=== PATIENT | female | born 1995 | race Caucasian/White ===

== ENCOUNTER 2016-10-19 09:20 | Emergency (ER) | payer BC, OTHER ==
[~2016-10-19] VITALS: Ht 162.6 cm; Wt 81.1 kg
[2016-10-19 09:21] VITALS: Ht 162.6 cm; Wt 81.1 kg
--- NOTE | 2016-10-19 10:47 | RADRPT ---
PROCEDURE: US Pelvis. CLINICAL INDICATION: Vaginal bleeding. TECHNIQUE: Multiple sonographic images of the pelvis were obtained utilizing a transabdominal and endovaginal technique. The images were reviewed on a PACS workstation. COMPARISON: None available. FINDINGS: The uterus demonstrates an intrauterine gestational sac, yolk sac and a pole with cardiac acti vity at 158 beats per minute. The mean sac size is 4.58 cm consistent with 35-tged-1-day gestation. The mean crown-rump length is 3.36 cm in size with a 97-amkt-0-day gestation. There are no abnorma l fluid collections identified. Ovaries appear normal in size and echotexture bilaterally. The rig ht ovary measures 3.1 by 0.6 x 2.2 cm. Left ovary measures 3.3 x 1.5 x 2.2 cm. There are no adnexal masses or free fluid in the cul-de-sac. IMPRESSION: 1. Single living intrauterine gestation with a mean gestational age by ultrasound of 10 weeks 2 days plus or minus 5 days. Estimated date of delivery is 05/15/2017. RPTAT: AACC Physician Robin Date Time Electronically viewed and signed by Physician Robin on 10/19/2016 10:47 /
--- NOTE | 2016-10-19 10:53 | ERD ---
ER Documentation Chief Complaint Date/Time DATE: 10/19/16 TIME: 10:50 Chief Complaint 9 weeks with spotting HPI This 21-year-old female who presents the emergency department today complaining of some vaginal bleeding that started this morning. Patient states she had abdominal cramping last night she thought it was food that she ate. Patient is 9 weeks and had her last appointment last Tuesday and everything was normal. States she has a follow-up appointment at [facility] in [place] on October 30, 2016 per denies nausea vomiting, abdominal pain, dysuria. ROS All systems reviewed and are negative except as per history of present illness. Medications Home Meds Active Scripts Acetaminophen* (Tylophen*) 500 Mg Capsule, 1 CAP PO Q6H Y for PAIN AND OR ELEVATED TEMP, #20 CAP Prov:SAVAGE CLARK PA-C 10/19/16 Allergies Allergies: Coded Allergies: No Known Allergy (Verified , 10/19/16) PMhx/Soc Hx Miscellaneous Medical Probl: Yes (dm) Hx Alcohol Use: No Hx Substance Use: No Hx Tobacco Use: No Physical Exam Vitals Vital Signs Date Time Temp Pulse Resp B/P Pulse Ox O2 Delivery O2 Flow Rate FiO2 10/19/16 09:21 97.7 78 18 128/67 99 Physical Exam Const: NAD Head: Atraumatic Eyes: Normal Conjunctiva ENT: Normal External Ears, Nose and Mouth. Neck: Full range of motion..~ No meningismus. Resp: Clear to auscultation bilaterally Cardio: Regular rate and rhythm, no murmurs Abd: Soft, non tender, non distended. Normal bowel sounds no right lower quadrant pain. No left lower quadrant pain. Skin: No petechiae or rashes Back: No midline or flank tenderness Ext: No cyanosis, or edema Neur: Awake and alert Psych: Normal Mood and Affect Result Diagram: 10/19/16 1040 Results 24 hrs Laboratory Tests Test 10/19/16 10:40 10/19/16 10:50 White Blood Count 7.310^3/ul Red Blood Count 4.3210^6/ul Hemoglobin 12.7g/dl Hematocrit 37.3% Mean Corpuscular Volume 86.3fl Mean Corpuscular Hemoglobin 29.4pg Mean Corpuscular Hemoglobin Concent 34.0g/dl Red Cell Distribution Width 14.6% Platelet Count 38151^3/UL Mean Platelet Volume 10.5fl Neutrophils % 72.2% Lymphocytes % 20.4% Monocytes % 5.8% Eosinophils % 0.8% Basophils % 0.5% Nucleated Red Blood Cells % 0.0/100WBC Neutrophils # 5.310^3/ul Lymphocytes # 1.510^3/ul Monocytes # 0.410^3/ul Eosinophils # 0.110^3/ul Basophils # 0.010^3/ul Nucleated Red Blood Cells # 0.010^3/ul Beta HCG, Quantitative 137747.0mIU/ml Urine Color LT. YELLOW Urine Clarity SLIGHTLY CLOUDY Urine pH 7.0 Urine Specific [place] 1.010 Urine Ketones 3+ Urine Nitrite NEGATIVE Urine Bilirubin NEGATIVE Urine Urobilinogen 0.2 E.U./dL Urine Leukocyte Esterase NEGATIVE Urine Microscopic RBC 0-2/HPF Urine Microscopic WBC 0-2/HPF Urine Epithelial Cells FEW Urine Amorphous Phosphates MANY Urine Bacteria MODERATE Urine Hemoglobin 2+ Urine Glucose NEGATIVE% Urine Total Protein NEGATIVE DIAGNOSTIC IMAGING REPORT Patient: DANNI OBRIEN : 1995 Age: 21 Sex: F MR #: [id number] DOS: 10/19/16 1019 Ordering MD: SAVAGE CLARK PA-C Location: [facility] Room/Bed: PROCEDURE: US Pelvis. CLINICAL INDICATION: Vaginal bleeding. TECHNIQUE: Multiple sonographic images of the pelvis were obtained utilizing a transabdominal and endovaginal technique. The images were reviewed on a PACS workstation. COMPARISON: None available. FINDINGS: The uterus demonstrates an intrauterine gestational sac, yolk sac and a pole with cardiac activity at 158 beats per minute. The mean sac size is 4.58 cm consistent with 18-mrlz-5-day gestation. The mean crown-rump length is 3.36 cm in size with a 71-vtqh-4-day gestation. There are no abnormal fluid collections identified. Ovaries appear normal in size and echotexture bilaterally. The right ovary measures 3.1 by 0.6 x 2.2 cm. Left ovary measures 3.3 x 1.5 x 2.2 cm. There are no adnexal masses or free fluid in the cul-de-sac. IMPRESSION: 1. Single living intrauterine gestation with a mean gestational age by ultrasound of 10 weeks 2 days plus or minus 5 days. Estimated date of delivery is 05/15/2017. RPTAT: AACC Lawson Baig Physician Date Time Electronically viewed and signed by Lawson Baig Physician on 10/19/2016 10: 47 JH/ CC: SAVAGE CLARK PA-C Procedures/MDM This is a A1 21-year-old female who presents to the emergency department today complaining of vaginal bleeding that started this morning. Patient indicated she is approximately 9 weeks given this I did obtain a complete OB workup Laboratory work shows no elevated white blood cell count. She is not anemic. Platelets are within normal limits. UA is negative for infection. Beta quant hCG 792928.0 Rh status O + Positive Ultrasound shows a single live intrauterine gestation with mean gestational age by ultrasound of 10 weeks and 2 days 5 days. Estimated date of delivery is May 15, 2017. There are no adnexal masses or free fluid. Cardiac activity is 158 bpm. Patient has vaginal bleeding in early . Patient symptoms may be due to threatened vs. early normal . I have explained this to the patient. I have also explained to her that she may continue to have vaginal bleeding. Patient denies any nausea vomiting or abdominal pain. She was given a prescription for Tylenol for home. She was instructed to follow-up with her OB/ [employer] in 48 hours for repeat beta quant. At this time the patient is stable for discharge and outpatient management. Patient should follow up with their PCP in the next 1-2 days. They may return to the emergency department sooner for any persistent or worsening of symptoms. Patient understood and agreed with the plan. Departure Diagnosis: Primary Impression: Vaginal bleeding in patient at less than 20 weeks gestation Condition: Fair SAVAGE CLARK PA-C Oct 19, 2016 10:53
[2016-10-19 10:55] LABS: ADD SCAN DIFF NO
[2016-10-19 11:09] LABS: BASOPHILS % 0.5 % (0.0-2.0); EOSINOPHILS # 0.1 10^3/ul (0.0-0.5); EOSINOPHILS % 0.8 % (0.0-7.0); HEMATOCRIT 37.3 % (37.0-47.0); HEMOGLOBIN 12.7 g/dl (12.0-16.0); LYMPHOCYTES # 1.5 10^3/ul (0.8-2.9); LYMPHOCYTES % 20.4 % (15.0-51.0); MEAN CORPUSCULAR HEMOGLOBIN 29.4 pg (29.0-33.0); MEAN CORPUSCULAR VOLUME 86.3 fl (82.0-101.0); MEAN PLATELET VOLUME 10.5 fl (7.4-10.4); MONOCYTE # 0.4 10^3/ul (0.3-0.9); MONOCYTES % 5.8 % (0.0-11.0); NEUTROPHIL # 5.3 10^3/ul (1.6-7.5); NEUTROPHILS % 72.2 % (39.0-77.0); PLATELET COUNT 255 10^3/UL (140-415); RED BLOOD COUNT 4.32 10^6/ul (4.20-5.40); RED CELL DISTRIBUTION WIDTH 14.6 % (11.5-14.5); WHITE BLOOD COUNT 7.3 10^3/ul (4.8-10.8)
[2016-10-19 11:18] LABS: ADD UMIC YES; URINE BILIRUBIN (Dip) NEGATIVE (NEGATIVE); URINE BLOOD (Dip) 2+ (NEGATIVE); URINE COLOR LT. YELLOW (YELLOW); URINE GLUCOSE (Dip) NEGATIVE (NEGATIVE); URINE KETONES (Dip) 3+ (NEGATIVE); URINE LEUKOCYTE ESTERASE (Dip) NEGATIVE (NEGATIVE); URINE NITRITE (Dip) NEGATIVE (NEGATIVE); URINE TOTAL PROTEIN (Dip) NEGATIVE (NEGATIVE); URINE UROBILINOGEN (Dip) 0.2 E.U./dL (0.1-1.0)
[2016-10-19 11:42] LABS: BACTERIA,URINE MODERATE; URINE RBCS 0-2 /HPF (0)
[2016-10-19] MEDS ORDERED: ACET500C5 PO (12:27)
[2016-10-19 12:45] VITALS: BP 122/65; PULSE 74; RESP 18; TEMP 98
== END 2016-10-19 12:35 | disposition home or self-care (01) ==
LOC: FTE 09:20
DX: O20.9 Hemorrhage in early pregnancy, unspecified (principal); O24.111 Pre-existing type 2 diabetes mellitus, in pregnancy, first trimester; E11.9 Type 2 diabetes mellitus without complications; Z3A.10 10 weeks gestation of pregnancy
CPT/HCPCS: 36415; 76801; 81001; 81003; 84702; 85025; 86900; 86901

== ENCOUNTER 2017-02-12 20:57 | Outpatient (CLI) | payer MEDICAID ==
[~2017-02-12] VITALS: Ht 157.5 cm; Wt 97.4 kg
[~2017-02-12 20:57] MED LIST: ACET500C5 PO
[2017-02-12 21:05] VITALS: Ht 157.5 cm; Wt 97.4 kg
[2017-02-12 21:11] VITALS: BP 120/56; PULSE 74; RESP 18
[2017-02-12] MEDS ORDERED: PRENAT PO (21:13)
--- NOTE | 2017-02-12 21:38 | PN ---
Triage Information Date/Time Weeks of Gestation Patient is 1 para 0 at 26 weeks and 4 days of gestation : 1 Para: 0 Diabetes: none Hypertention: none Additional information Patient presents with decreased movement since yesterday Objective Vital Signs Date Time Temp Pulse Resp B/P Pulse Ox O2 Delivery O2 Flow Rate FiO2 02/12/17 21:11 98.2 74 18 120/56 Room Air Heart Rate: 140's Heart Rate Comments NST is reactive Contractions: None Results/Medications Imaging Results PROCEDURE: Obstetrical ultrasound, limited. CLINICAL INDICATION: Pelvic pain. TECHNIQUE: Multiple sonographic images of the pelvis were obtained using transabdominal technique. Images were obtained with knott scale and color Doppler. The images were reviewed on a PACS workstation. COMPARISON: 10/19/2016. FINDINGS: There is a single living intrauterine gestation with the fetus in a breech and variable presentation. heart tones of 139 beats per minute are identified. The placenta is posterior in location, grade 1. There is no evidence of placenta previa or abruption. Measurements were made in order to determine age. The results are as follows: BPD = 6.33 cm HC = 23.35 cm AC = 23.57 cm FL = 4.99 cm. Estimated gestational age of approximately 26 weeks and 3 days. The estimated date of delivery is 05/18/2017. The EFW = 1032 +/- 155 grams. Estimated weight percentage equals 62.4%. IMPRESSION: Single viable intrauterine gestation of approximately 26 weeks and 3 days, with an ultrasound RANDY of 05/18/2017. .Dannie Chavez MD, MD Date Time Electronically viewed and signed by .Dannie Chavez MD, MD on 02/12/2017 22:24 .T/ CC: NORBERT FARLEY MD PROCEDURE: Biophysical profile. CLINICAL INDICATION: Pelvic pain. TECHNIQUE: Multiple sonographic images of the pelvis were obtained with transabdominal technique. COMPARISON: 10/19/2016 FINDINGS: There is a single living intrauterine gestation with the fetus in a breech and variable position. The placenta is posterior in location, grade 1. heart tones of 152 beats per minute are identified. There is normal amniotic fluid volume with an LIBERTAD of 14.8 cm. breathing movements = 2 Gross body movements = 2 tone = 2 Qualitative AFV = 2 IMPRESSION: Biophysical profile 8 out of 8. .Dannie Chavez MD, Date Time Electronically viewed and signed by .Dannie Chavez MD, on 02/12/2017 22:24 .T/ CC: NORBERT FARLEY MD Assessment/Plan Patient is 1 para 0 at 26 weeks and 4 days of gestation with decreased movement NST and biophysical profile and estimated weight all within normal limits Patient now reports positive movement Patient was instructed regarding kick counts Patient was counseled to increase p.o. fluid hydration She should return in 48 hours for repeat NST and biophysical profile NORBERT FARLEY MD Feb 12, 2017 21:38
--- NOTE | 2017-02-12 22:24 | RADRPT ---
PROCEDURE: Obstetrical ultrasound, limited. CLINICAL INDICATION: Pelvic pain. TECHNIQUE: Multiple sonographic images of the pelvis were obtained using transabdominal technique . Images were obtained with knott scale and color Doppler. The images were reviewed on a PACS works tation. COMPARISON: 10/19/2016. FINDINGS: There is a single living intrauterine gestation with the fetus in a breech and variable presentation . heart tones of 139 beats per minute are identified. The placenta is posterior in location, grade 1. There is no evidence of placenta previa or abruption. Measurements were made in order to determine age. The results are as follows: BPD =6.33 cm HC =23.35 cm AC =23.57 cm FL =4.99 cm. Estimated gestational age of approximately 26 weeks and 3 days. The estimated date of delivery is 05/18/2017. The EFW = 1032 +/- 155 grams. Estimated weight percentage equals 62.4%. IMPRESSION: Single viable intrauterine gestation of approximately 26 weeks and 3 days, with an ultrasound RANDY of 05/18/2017. .Dannie Chavez MD, MD Date Time Electronically viewed and signed by .Dannie Chavez MD, MD on 02/12/2017 22:24 .T/
--- NOTE | 2017-02-12 22:25 | RADRPT ---
PROCEDURE: Biophysical profile. CLINICAL INDICATION: Pelvic pain. TECHNIQUE: Multiple sonographic images of the pelvis were obtained with transabdominal technique. COMPARISON: 10/19/2016 FINDINGS: There is a single living intrauterine gestation with the fetus in a breech and variable position. T he placenta is posterior in location, grade 1. heart tones of 152 beats per minute are identif ied. There is normal amniotic fluid volume with an LIBERTAD of 14.8 cm. breathing movements = 2 Gross body movements = 2 tone = 2 Qualitative AFV = 2 IMPRESSION: Biophysical profile 8 out of 8. .Dannie Chavez MD, MD Date Time Electronically viewed and signed by .Dannie Chavez MD, MD on 02/12/2017 22:24 .T/
--- NOTE | 2017-02-12 23:16 | TRIAGE ---
OB Triage Datetime Report Generated by CPN: 02/12/2017 23:16 Datetime: 02/12/2017 22:50 Stage of : OB Triage Labor Evaluation Frequency: 0 Monitor Mode: External Pattern: Normal: <= 5 Contractions in 10 Minutes Resting Tone Glandorf: Relaxed Heart Rate FHR Baseline Rate: 140 Monitor Mode: External US Variability: Moderate 6-25 bpm Accelerations: 15X15 Decelerations: None Category: Category I Pain Assessment Pain Presence: None/Denies Datetime: 02/12/2017 22:00 Stage of : OB Triage Temperature Route: Oral Labor Evaluation Frequency: 0 Monitor Mode: External Pattern: Normal: <= 5 Contractions in 10 Minutes Resting Tone Glandorf: Relaxed Heart Rate FHR Baseline Rate: 140 Monitor Mode: External US Variability: Moderate 6-25 bpm Accelerations: 15X15 Decelerations: None Category: Category I Pain Assessment Pain Presence: None/Denies Datetime: 02/12/2017 21:15 Assessment Type: Triage Maternal Assessment Level of Consciousness: Fully Conscious DTR's/Clonus: DTRs 2+; No Clonus Headache: Denies Blurred Vision: No Respiratory Effort: Unlabored; Regular Rhythm; Equal Expansion Breath Sounds, Left: Clear and Equal Breath Sounds, Right: Clear and Equal Nausea/Vomiting: Denies RUQ Epigastric Pain: Denies Lower Extremities Edema: None Upper Extremities Edema: None Facial Edema: None Fall Risk Assessment History of Falling: (0) No Secondary Diagnosis: (0) No Ambulatory Aid: (0) Bedrest/Nurse Assist IV Therapy: (0) No Gait: (0) Normal/Bedrest/Immobile Mental Status: (0) Oriented to Own Ability Fall Score: 0 Fall Risk Score Definition: No Risk: No action required Datetime: 02/12/2017 21:12 Time of Arrival: 02/12/2017 20:51 EGA: 26.4 Arrived By: Ambulatory Arrived From: Home Chief Complaint: DEC. MOVEMENT SINCE YESTERDAY Movement: Decreased Contractions: Denies/Absent Rupture of Membranes: Denies Vaginal Bleeding: None Vaginal Discharge: Denies Patient Complaints: None Additional Patient Complaints: HX OF DIABETES CHILD, WAS ON METFORMIN FOR A YEAR, STATED LOST W EIGHT AND WAS OFF THE MED SINCE THEN Time Provider Notified: 02/12/2017 21:20 Provider Notified: MARTINE Initial Plan: EFM, ASSESSMENT, CALL MD FOR ORDERS
== END 2017-02-12 22:57 | disposition home or self-care (01) ==
LOC: OBT 20:57 → L-D 20:59 → OBT 22:57
PROVIDERS: ATTEND Obstetrics & Gynecology
DX: O36.8120 Decreased fetal movements, second trimester, not applicable or unspecified (principal); Z3A.26 26 weeks gestation of pregnancy
CPT/HCPCS: 76815; 76818

== ENCOUNTER 2017-02-14 18:05 | Outpatient (CLI) | payer MEDICAID ==
[~2017-02-14] VITALS: Ht 157.5 cm; Wt 98.1 kg
[~2017-02-14 18:05] MED LIST changes: +PRENAT PO
--- NOTE | 2017-02-14 18:41 | QN ---
Documentation Comment g1 iup 26 weeks dfm v ss exam wnl a/p iup 26 weeks dfm resolved dc home LORI LIMA MD Feb 14, 2017 18:41
--- NOTE | 2017-02-14 18:47 | RADRPT ---
PROCEDURE: US OB biophysical profile. CLINICAL INDICATION: evaluation TECHNIQUE: Multiple sonographic images of the pelvis were obtained. The images were reviewed on a PACS workstation. COMPARISON: No prior studies are available for comparison. FINDINGS: There is a single viable intrauterine gestation. Cardiac activity is present with 161 beats per min tatyana. There is a vertex presentation. The placenta is posterior. There is no evidence of placental abruption. There is a normal amount of amniotic fluid with an LIBERTAD = 13.5 cm. Biophysical profile: movement 2/2 tone 2/2. breathing 2/2 LIBERTAD 2/2 Total 02/22 RPTAT: AA . IMPRESSION: Normal biophysical profile. Physician Molly Date Time Electronically viewed and signed by Physician Molly on 02/14/2017 18:46 /
[2017-02-14 18:52] VITALS: Ht 157.5 cm; Wt 98.1 kg
[2017-02-14 18:53] VITALS: BP 125/58; PULSE 78; RESP 18
--- NOTE | 2017-02-14 19:08 | TRIAGE ---
OB Triage Datetime Report Generated by CPN: 02/14/2017 19:07 Datetime: 02/14/2017 18:44 Labor Evaluation Frequency: NO UC'S NOTED Monitor Mode: External Contraction Comments: PT DENIES UC'S Heart Rate FHR Baseline Rate: 155 Monitor Mode: External US Variability: Moderate 6-25 bpm Accelerations: 15X15 Decelerations: None Category: Category I Comments: NST REACTIVE FOR GESTATIONAL AGE Datetime: 02/14/2017 18:34 Assessment Type: Triage Maternal Assessment Level of Consciousness: Fully Conscious DTR's/Clonus: DTRs 2+; No Clonus Headache: Denies Blurred Vision: No Respiratory Effort: Unlabored; Regular Rhythm; Equal Expansion Breath Sounds, Left: Clear and Equal Breath Sounds, Right: Clear and Equal Nausea/Vomiting: Denies RUQ Epigastric Pain: Denies Lower Extremities Edema: Bilateral Lower Extremities Degree: 2+ Upper Extremities Edema: Bilateral Upper Extremities Facial Edema: None Fall Risk Assessment History of Falling: (0) No Secondary Diagnosis: (0) No Ambulatory Aid: (0) Bedrest/Nurse Assist IV Therapy: (0) No Gait: (0) Normal/Bedrest/Immobile Mental Status: (0) Oriented to Own Ability Fall Score: 0 Fall Risk Score Definition: No Risk: No action required Datetime: 02/14/2017 18:32 Stage of : OB Triage Assessment Type: Triage Maternal Assessment Level of Consciousness: Fully Conscious DTR's/Clonus: DTRs 2+; No Clonus Headache: Denies Blurred Vision: No Respiratory Effort: Unlabored; Regular Rhythm; Equal Expansion Breath Sounds, Left: Clear and Equal Breath Sounds, Right: Clear and Equal Nausea/Vomiting: Denies RUQ Epigastric Pain: Denies Lower Extremities Edema: Bilateral Lower Extremities Degree: 2+ Upper Extremities Edema: Bilateral Upper Extremities Degree: 1+ Facial Edema: None Temperature Route: Axillary Fall Risk Assessment History of Falling: (0) No Secondary Diagnosis: (0) No Ambulatory Aid: (0) Bedrest/Nurse Assist IV Therapy: (0) No Gait: (0) Normal/Bedrest/Immobile Mental Status: (0) Oriented to Own Ability Fall Score: 0 Fall Risk Score Definition: No Risk: No action required Datetime: 02/14/2017 18:13 Time of Arrival: 02/14/2017 18:04 EGA: 26.6 Arrived By: Ambulatory Arrived From: Home Chief Complaint: F/U FOR DECREASED FM D/C ON 02/12 BY LABORIST Movement: Present Contractions: Denies/Absent Rupture of Membranes: Denies Vaginal Bleeding: None Vaginal Discharge: Denies Recent Sexual Intercouse: Denies Abdominal Trauma: Not Applicable Time Provider Notified: 02/14/2017 18:17 Provider Notified: DR. HAMEED Initial Plan: NST AND CALL MD Datetime: 02/12/2017 21:15 Fall Score: 0 Fall Risk Score Definition: No Risk: No action required Datetime: 02/12/2017 21:12 EGA: 26.4
== END 2017-02-14 18:59 | disposition home or self-care (01) ==
LOC: OBT 18:05 → L-D 18:06 → OBT 18:59
PROVIDERS: ATTEND Obstetrics & Gynecology
DX: O36.8120 Decreased fetal movements, second trimester, not applicable or unspecified (principal); Z3A.26 26 weeks gestation of pregnancy
CPT/HCPCS: 76818; Z7500; G0463

== ENCOUNTER 2017-02-23 20:24 | Outpatient (CLI) | payer MEDICAID ==
[~2017-02-23 20:24] MED LIST changes: -ACET500C5 PO
--- NOTE | 2017-02-23 21:27 | RADRPT ---
PROCEDURE: US OB biophysical profile. CLINICAL INDICATION: Evaluate well-being, contractions TECHNIQUE: Multiple sonographic images of the pelvis were obtained. The images were reviewed on a PACS workstation. COMPARISON: 02/14/2017 FINDINGS: There is a single viable intrauterine gestation. There is a normal amount of amniotic fluid with an LIBERTAD = 14.9 cm. Cardiac activity is present with 156 beats per minute. There is a breech presentation. The placenta is posterior. Biophysical profile: movement 2/2 tone 2/2. breathing 2/2 LIBERTAD 2/2 Total 02/22 IMPRESSION: 1. Single viable intrauterine gestation is identified in breech presentation. 2. Posterior placenta without evidence of previa or abruption. The amniotic fluid index is normal measuring 14.9 cm. 3. The biophysical profile is 02/22 RPTAT:AAJJ . Physician Chidi Date Time Electronically viewed and signed by Physician Chidi on 02/23/2017 21:27 /
[2017-02-23 21:42] LABS: BASOPHILS % 0.3 % (0.0-2.0); EOSINOPHILS # 0.1 10^3/ul (0.0-0.5); EOSINOPHILS % 1.2 % (0.0-7.0); HEMATOCRIT 30.1 % (37.0-47.0); HEMOGLOBIN 10.4 g/dl (12.0-16.0); LYMPHOCYTES # 2.5 10^3/ul (0.8-2.9); LYMPHOCYTES % 26.7 % (15.0-51.0); MEAN CORPUSCULAR HEMOGLOBIN 30.4 pg (29.0-33.0); MEAN CORPUSCULAR HGB CONC 34.6 g/dl (32.0-37.0); MEAN PLATELET VOLUME 10.7 fl (7.4-10.4); MONOCYTE # 0.4 10^3/ul (0.3-0.9); MONOCYTES % 4.4 % (0.0-11.0); NEUTROPHIL # 6.2 10^3/ul (1.6-7.5); PLATELET COUNT 216 10^3/UL (140-415); RED BLOOD COUNT 3.42 10^6/ul (4.20-5.40); RED CELL DISTRIBUTION WIDTH 13.4 % (11.5-14.5); WHITE BLOOD COUNT 9.3 10^3/ul (4.8-10.8)
[2017-02-23 22:00] LABS: ALBUMIN 3.3 g/dl (3.3-4.9); ALBUMIN/GLOBULIN RATIO 1.1; BILIRUBIN,INDIRECT 0.2 mg/dl (0-1.1); BILIRUBIN,TOTAL 0.2 mg/dl (0.2-1.3); CALCIUM 8.8 mg/dl (8.4-10.2); CREATININE 0.54 mg/dl (0.44-1.00); POTASSIUM 3.8 mmol/L (3.5-5.1); TOTAL PROTEIN 6.3 g/dl (6.1-8.1)
--- NOTE | 2017-02-23 22:07 | RADRPT ---
PROCEDURE: Gallbladder ultrasound. CLINICAL INDICATION: 21 years of age, female, Abdominal pain. TECHNIQUE: Multiple real-time longitudinal and transverse images of the gallbladder and common diane e duct were acquired utilizing a curved array transducer. Images were reviewed on a high-resolution PACS workstation. COMPARISON: None. FINDINGS: Pancreas: Not well seen due to bowel gas. Liver appearance: Normal. Liver length: 15.5 cm. Bile Ducts: No intrahepatic or extrahepatic biliary ductal dilatation. CBD: 1.3 cm. Gallbladder: Normal. Gallbladder wall measures an 0.2 cm. Main portal vein demonstrates hepatopetal flow. Right kidney length: 11.6 cm. Right kidney appearance: Normal. Other: Negative for free fluid in the right upper quadrant. IMPRESSION: Negative right upper quadrant ultrasound. Negative for gallstones or evidence of acute cholecystiti s. RPTAT: HCTS Physician Champ Date Time Electronically viewed and signed by Physician Champ on 02/23/2017 22:07 /
--- NOTE | 2017-02-24 00:01 | TRIAGE ---
OB Triage Datetime Report Generated by CPN: 02/24/2017 00:01 Datetime: 02/23/2017 23:55 Stage of : OB Triage Datetime: 02/23/2017 22:36 Pain Assessment Pain Assessment Comments: PT. STATES HER PAIN HAS GONE AWAY SINCE SHE IS LAYING DOWN. PT. STATES S HE FEELS MORE PAIN WHEN SHE IS SITTING Datetime: 02/23/2017 22:30 Labor Evaluation Frequency: NONE Monitor Mode: External Duration (sec)2399: NONE Pattern: Normal: <= 5 Contractions in 10 Minutes Heart Rate FHR Baseline Rate: 150 Monitor Mode: External US FHR Baseline Changes: No Baseline Change Variability: Moderate 6-25 bpm Accelerations: 10X10 Decelerations: None Datetime: 02/23/2017 20:48 Time of Arrival: 02/23/2017 20:19 EGA: 28.1 Arrived By: Wheelchair Arrived From: Home Chief Complaint: RUQ PAIN Movement: Present Contractions: Denies/Absent Rupture of Membranes: Denies Vaginal Bleeding: None Vaginal Discharge: Denies Recent Sexual Intercouse: Denies Abdominal Trauma: Not Applicable Patient Complaints: Other Time Provider Notified: 02/24/2017 20:53 Provider Notified: ESHAGIAN Initial Plan: EFM, CALL OB Datetime: 02/23/2017 20:30 Stage of : OB Triage Assessment Type: Triage Maternal Assessment Level of Consciousness: Fully Conscious Headache: Denies Blurred Vision: No Respiratory Effort: Unlabored; Regular Rhythm; Equal Expansion Nausea/Vomiting: Denies Facial Edema: None Temperature Route: Oral Fall Risk Assessment History of Falling: (0) No Secondary Diagnosis: (0) No Ambulatory Aid: (0) Bedrest/Nurse Assist IV Therapy: (0) No Gait: (0) Normal/Bedrest/Immobile Mental Status: (0) Oriented to Own Ability Fall Score: 0 Fall Risk Score Definition: No Risk: No action required Datetime: 02/14/2017 18:34 Fall Score: 0 Fall Risk Score Definition: No Risk: No action required Datetime: 02/14/2017 18:32 Fall Score: 0 Fall Risk Score Definition: No Risk: No action required Datetime: 02/14/2017 18:13 EGA: 26.6 Datetime: 02/12/2017 21:15 Fall Score: 0 Fall Risk Score Definition: No Risk: No action required Datetime: 02/12/2017 21:12 EGA: 26.4
--- NOTE | 2017-02-24 01:13 | PN ---
Triage Information Date/Time February 24, 2017 Reason for visit: Right upper quadrant pain and discomfort Weeks of Gestation 28 weeks and 1 day /Para 1 para 0 Diabetes: none Hypertention: none Additional information 21-year-old with IUP at 28 weeks and 1 day with care with Dr. Bolaños, presented with a complaint of right upper quadrant discomfort that increase when moves or turns and walks. Patient is concerned she might have gallstones. Denies any known history of gallstone. Denies any leaking of fluid , vaginal bleeding, uterine contractions or decreased movement. Objective Heart Rate: 120's Contractions: None Exam General appearance: Alert and oriented 4. Patient does not appear to be in any acute distress. Abdomen: Soft, gravid, nontender, no rebound tenderness, no guarding, no rigidity, no evidence of acute abdomen. Negative Sullivan sign. No CVA tenderness Extremities: No calf tenderness, no click no edema NST: Category 1 Ultrasound abdomen: No pathology Hematology - 72 Hrs Test 02/23/17 21:25 White Blood Count 9.310^3/ul (4.8-10.8) # Red Blood Count 3.4210^6/ul (4.20-5.40) #L Hemoglobin 10.4g/dl (12.0-16.0) L Hematocrit 30.1% (37.0-47.0) L Mean Corpuscular Volume 88.0fl (82.0-101.0) Mean Corpuscular Hemoglobin 30.4pg (29.0-33.0) Mean Corpuscular Hemoglobin Concent 34.6g/dl (32.0-37.0) Red Cell Distribution Width 13.4% (11.5-14.5) Platelet Count 21905^3/UL (140-415) Mean Platelet Volume 10.7fl (7.4-10.4) H Neutrophils % 67.0% (39.0-77.0) Lymphocytes % 26.7% (15.0-51.0) Monocytes % 4.4% (0.0-11.0) Eosinophils % 1.2% (0.0-7.0) Basophils % 0.3% (0.0-2.0) Nucleated Red Blood Cells % 0.0/100WBC (0.0-0.0) Neutrophils # 6.210^3/ul (1.6-7.5) Lymphocytes # 2.510^3/ul (0.8-2.9) Monocytes # 0.410^3/ul (0.3-0.9) Eosinophils # 0.110^3/ul (0.0-0.5) Basophils # 0.010^3/ul (0.0-0.1) Nucleated Red Blood Cells # 0.010^3/ul (0.0-0.0) Chemistry Test 02/23/17 21:25 Sodium Level 137mmol/L (135-144) Potassium Level 3.8mmol/L (3.5-5.1) Chloride Level 104mmol/L (97-110) Carbon Dioxide Level 20mmol/L (21-31) L Anion Gap 17 (8-16) H Blood Urea Nitrogen 5mg/dl (7-20) L Creatinine 0.54mg/dl (0.44-1.00) Glucose Level 166mg/dl (70-220) Calcium Level 8.8mg/dl (8.4-10.2) Total Bilirubin 0.2mg/dl (0.2-1.3) Direct Bilirubin 0.00mg/dl (0.00-0.20) Indirect Bilirubin 0.2mg/dl (0-1.1) Aspartate Amino Transf (AST/SGOT) 19IU/L (15-46) Alanine Aminotransferase (ALT/SGPT) 31IU/L (13-69) Alkaline Phosphatase 76IU/L (42-121) Total Protein 6.3g/dl (6.1-8.1) Albumin 3.3g/dl (3.3-4.9) Globulin 3.00g/dl (1.3-3.2) Albumin/Globulin Ratio 1.10 Amylase Level 80U/L (11-123) Lipase 36U/L (23-300) Results/Medications Result Diagram: 02/23/17212402/23/172124 Results 24 hrs Laboratory Tests Test 02/23/17 21:25 White Blood Count 9.3 # Red Blood Count 3.42 #L Hemoglobin 10.4 L Hematocrit 30.1 L Mean Corpuscular Volume 88.0 Mean Corpuscular Hemoglobin 30.4 Mean Corpuscular Hemoglobin Concent 34.6 Red Cell Distribution Width 13.4 Platelet Count 216 Mean Platelet Volume 10.7 H Neutrophils % 67.0 Lymphocytes % 26.7 Monocytes % 4.4 Eosinophils % 1.2 Basophils % 0.3 Nucleated Red Blood Cells % 0.0 Neutrophils # 6.2 Lymphocytes # 2.5 Monocytes # 0.4 Eosinophils # 0.1 Basophils # 0.0 Nucleated Red Blood Cells # 0.0 Sodium Level 137 Potassium Level 3.8 Chloride Level 104 Carbon Dioxide Level 20 L Anion Gap 17 H Blood Urea Nitrogen 5 L Creatinine 0.54 Glucose Level 166 Calcium Level 8.8 Total Bilirubin 0.2 Direct Bilirubin 0.00 Indirect Bilirubin 0.2 Aspartate Amino Transf (AST/SGOT) 19 Alanine Aminotransferase (ALT/SGPT) 31 Alkaline Phosphatase 76 Total Protein 6.3 Albumin 3.3 Globulin 3.00 Albumin/Globulin Ratio 1.10 Amylase Level 80 Lipase 36 Imaging Results PROCEDURE: Gallbladder ultrasound. CLINICAL INDICATION: 21 years of age, female, Abdominal pain. TECHNIQUE: Multiple real-time longitudinal and transverse images of the gallbladder and common bile duct were acquired utilizing a curved array transducer. Images were reviewed on a high-resolution PACS workstation. COMPARISON: None. FINDINGS: Pancreas: Not well seen due to bowel gas. Liver appearance: Normal. Liver length: 15.5 cm. Bile Ducts: No intrahepatic or extrahepatic biliary ductal dilatation. CBD: 1.3 cm. Gallbladder: Normal. Gallbladder wall measures an 0.2 cm. Main portal vein demonstrates hepatopetal flow. Right kidney length: 11.6 cm. Right kidney appearance: Normal. Other: Negative for free fluid in the right upper quadrant. IMPRESSION: Negative right upper quadrant ultrasound. Negative for gallstones or evidence of acute cholecystitis. PROCEDURE: US OB biophysical profile. CLINICAL INDICATION: Evaluate well-being, contractions TECHNIQUE: Multiple sonographic images of the pelvis were obtained. The images were reviewed on a PACS workstation. COMPARISON: 02/14/2017 FINDINGS: There is a single viable intrauterine gestation. There is a normal amount of amniotic fluid with an LIBERTAD = 14.9 cm. Cardiac activity is present with 156 beats per minute. There is a breech presentation. The placenta is posterior. Biophysical profile: movement 2/2 tone 2/2. breathing 2/2 LIBERTAD 2/2 Total 8 IMPRESSION: 1. Single viable intrauterine gestation is identified in breech presentation. 2. Posterior placenta without evidence of previa or abruption. The amniotic fluid index is normal measuring 14.9 cm. 3. The biophysical profile is 02/22 Disposition: Discharge Assessment/Plan IUP at 28 weeks and 1 day Right upper quadrant discomfort, musculoskeletal. No evidence of abdominal issue. No evidence of gallstones or cholecystitis Patient was reassured Advised to take Tylenol as needed pain Follow-up within 24-48 hours with primary OB suggested labor precaution and kick count discussed YVES FLORES MD Feb 24, 2017 01:12
== END 2017-02-24 00:04 | disposition home or self-care (01) ==
LOC: OBT 20:24 → L-D 20:25 → OBT 02-24 00:04
PROVIDERS: ATTEND Obstetrics & Gynecology
DX: O26.892 Other specified pregnancy related conditions, second trimester (principal); Z3A.01 Less than 8 weeks gestation of pregnancy; R10.11 Right upper quadrant pain
CPT/HCPCS: 76705; 76818; 80053; 82150; 83690; 85025; Z7500; G0463

== ENCOUNTER 2017-04-05 18:41 | Outpatient (CLI) | payer MEDICAID ==
[~2017-04-05] VITALS: Ht 157.5 cm; Wt 101.2 kg
[2017-04-05 19:23] VITALS: Ht 157.5 cm; Wt 101.2 kg
[2017-04-05] MEDS ORDERED: NPH,100V SQ (19:23)
[2017-04-05] MEDS ORDERED: INSU100C SQ ×2 (19:23)
[2017-04-05 19:24] VITALS: BP 116/62; PULSE 80; RESP 19
--- NOTE | 2017-04-05 20:32 | RADRPT ---
PROCEDURE: US biophysical profile. CLINICAL INDICATION: GDM. well-being. TECHNIQUE: Multiple sonographic images of the uterus were obtained. The images were revi ewed on a PACS workstation. COMPARISON: 02/23/2017. FINDINGS: There is a single live intrauterine gestation. heart rate is 152 beats per minute. The position is cephalic. The placenta is posterior, grade 2. The LIBERTAD is 15.2 cm. Breathing Movement: 2 Gross Body Movement: 2 Tone: 2 Qualitative Amniotic Fluid Volume: 2 TOTAL: 8 IMPRESSION: 1. Single viable intrauterine gestation. 2. Biophysical profile = 02/22. 3. LIBERTAD = 15.2 cm. RPTAT: HH .Sheron Deutsch MD, MD Date Time Electronically viewed and signed by .Sheron Deutsch MD, MD on 04/05/2017 20:31 .N/
--- NOTE | 2017-04-05 21:38 | TRIAGE ---
OB Triage Datetime Report Generated by CPN: 04/05/2017 21:37 Datetime: 04/05/2017 19:53 Labor Evaluation Frequency: NONE Monitor Mode: External Resting Tone [place]: Relaxed Heart Rate FHR Baseline Rate: 145 Monitor Mode: External US Variability: Moderate 6-25 bpm Accelerations: 15X15 Decelerations: None Category: Category I Datetime: 04/05/2017 19:25 Maternal Assessment Level of Consciousness: Fully Conscious DTR's/Clonus: DTRs 1+ Headache: Denies Blurred Vision: No Respiratory Effort: Unlabored Breath Sounds, Left: Clear and Equal Breath Sounds, Right: Clear and Equal RUQ Epigastric Pain: Denies Facial Edema: None Labor Evaluation Frequency: NONE Monitor Mode: External Resting Tone [place]: Relaxed Heart Rate FHR Baseline Rate: 145 Monitor Mode: External US Variability: Moderate 6-25 bpm Accelerations: 15X15 Decelerations: None Category: Category I Pain Assessment Pain Scale: 0 Pain Presence: None/Denies Pain Type: N/A Pain Goal: 3 Vaginal Exam Membrane Status: Intact Datetime: 04/05/2017 19:16 Assessment Type: Triage Maternal Assessment Level of Consciousness: Fully Conscious DTR's/Clonus: DTRs 2+; No Clonus Headache: Denies Blurred Vision: No Respiratory Effort: Unlabored; Regular Rhythm; Equal Expansion Breath Sounds, Left: Clear and Equal Breath Sounds, Right: Clear and Equal Nausea/Vomiting: Denies RUQ Epigastric Pain: Denies Lower Extremities Edema: None Degree: None Upper Extremities Edema: None Degree: None Facial Edema: None Fall Risk Assessment History of Falling: (0) No Secondary Diagnosis: (0) No Ambulatory Aid: (0) Bedrest/Nurse Assist IV Therapy: (0) No Gait: (0) Normal/Bedrest/Immobile Mental Status: (0) Oriented to Own Ability Fall Score: 0 Fall Risk Score Definition: No Risk: No action required Datetime: 04/05/2017 19:00 Time of Arrival: 04/05/2017 19:00 EGA: 34.0 Arrived By: Ambulatory Arrived From: Home Chief Complaint: PT CAME IN FOR NST AND BPP FOR GDM TYPE 2 . FBS 93 PP 116 Movement: Present Contractions: Denies/Absent Rupture of Membranes: Denies Vaginal Bleeding: None Vaginal Discharge: Denies Recent Sexual Intercouse: Denies Abdominal Trauma: Not Applicable Patient Complaints: None Additional Patient Complaints: NONE Time Provider Notified: 04/05/2017 21:00 Provider Notified: Dr. Bolaños Initial Plan: NST, BPP Datetime: 02/23/2017 20:48 EGA: 28.1 Datetime: 02/23/2017 20:30 Fall Score: 0 Fall Risk Score Definition: No Risk: No action required Datetime: 02/14/2017 18:34 Fall Score: 0 Fall Risk Score Definition: No Risk: No action required Datetime: 02/14/2017 18:32 Fall Score: 0 Fall Risk Score Definition: No Risk: No action required Datetime: 02/14/2017 18:13 EGA: 26.6 Datetime: 02/12/2017 21:15 Fall Score: 0 Fall Risk Score Definition: No Risk: No action required Datetime: 02/12/2017 21:12 EGA: 26.4
--- NOTE | 2017-04-05 22:25 | PN ---
Triage Information Date/Time Reason for visit: NST/LIBERTAD ([id number]) Weeks of Gestation 34+0 /Para 1/0 Diabetes: pre-gestational Diabetes management: insulin controlled Hypertention: none Additional information Reports normal FM, denies LOF, VB or UCs. Sent from Dr. Thomas's clinic for testing. Objective Vital Signs Date Time Temp Pulse Resp B/P Pulse Ox O2 Delivery O2 Flow Rate FiO2 04/05/17 19:24 98.2 80 19 116/62 99 Room Air Heart Rate: 140's Heart Rate Comments mod variability, +accels, no decels Contractions: None Results/Medications Imaging Results PROCEDURE: US biophysical profile. CLINICAL INDICATION: GDM. well-being. TECHNIQUE: Multiple sonographic images of the uterus were obtained. The images were reviewed on a PACS workstation. COMPARISON: 02/23/2017. FINDINGS: There is a single live intrauterine gestation. heart rate is 152 beats per minute. The position is cephalic. The placenta is posterior, grade 2. The LIBERTAD is 15.2 cm. Breathing Movement: 2 Gross Body Movement: 2 Tone: 2 Qualitative Amniotic Fluid Volume: 2 TOTAL: 8 IMPRESSION: 1. Single viable intrauterine gestation. 2. Biophysical profile = /8. 3. LIBERTAD = 15.2 cm. Disposition: Discharge Assessment/Plan Reactive NST, normal LIBERTAD. Results reviewed w/Dr. Thomas by digital court reporter and given d/c order. Pt appropriate for d/c home. PTL, PPROM and FKC precautions reviewed. Questions answered to patient's satisfaction prior to discharge. F/up as scheduled w/Dr. Thomas's office. Pt will call office tomorrow to schedule next NST/LIBETRAD ALEX CANTU MD Apr 05, 2017 22:25
== END 2017-04-05 21:15 | disposition home or self-care (01) ==
LOC: OBT 18:41 → L-D 18:42 → OBT 21:15
PROVIDERS: ATTEND Obstetrics & Gynecology
DX: O24.414 Gestational diabetes mellitus in pregnancy, insulin controlled (principal); Z3A.34 34 weeks gestation of pregnancy
CPT/HCPCS: 76818; G0463

== ENCOUNTER 2017-04-15 09:12 | Outpatient (CLI) | payer MEDICAID ==
[~2017-04-15] VITALS: Ht 157.5 cm; Wt 103.0 kg
[~2017-04-15 09:12] MED LIST changes: +INSU100C SQ; +NPH,100V SQ
[2017-04-15 09:21] VITALS: Ht 157.5 cm; Wt 103.0 kg
[2017-04-15 09:22] VITALS: BP 115/59; PULSE 88; RESP 18
--- NOTE | 2017-04-15 09:42 | RADRPT ---
PROCEDURE: OB ultrasound for biophysical profile CLINICAL INDICATION: Contractions. TECHNIQUE: Multiple sonographic images of the pelvis were obtained. Transabdominal view of the gr avid uterus are available for review. The images were reviewed on a PACS workstation. COMPARISON: 04/05/2017. FINDINGS: breathing movement = 2/2 tone = 2/2 motion = 2/2 Quantitative amniotic fluid volume = 2/2 LIBERTAD = 9.4 cm Single live intrauterine with cardiac activity at 144 beats per minute. There is a posterior placenta without previa or abruption. IMPRESSION: 1. Single living intrauterine gestation in cephalic position. 2. Biophysical profile = 8/8. 3. LIBERTAD = 9.4 cm. RPTAT: [facility] Physician Robin Date Time Electronically viewed and signed by Physician Robin on 04/15/2017 09:42 /
[2017-04-15] MEDS ORDERED: LACTATED RINGER'S 1,000 ML IV SCH (10:32)
[2017-04-15 12:07] LABS: BASOPHILS % 0.3 % (0.0-2.0); EOSINOPHILS # 0.1 10^3/ul (0.0-0.5); EOSINOPHILS % 1.3 % (0.0-7.0); HEMATOCRIT 31.8 % (37.0-47.0); HEMOGLOBIN 10.4 g/dl (12.0-16.0); LYMPHOCYTES # 2.2 10^3/ul (0.8-2.9); LYMPHOCYTES % 25.9 % (15.0-51.0); MEAN CORPUSCULAR HEMOGLOBIN 28.2 pg (29.0-33.0); MEAN CORPUSCULAR HGB CONC 32.7 g/dl (32.0-37.0); MEAN CORPUSCULAR VOLUME 86.2 fl (82.0-101.0); MEAN PLATELET VOLUME 11.8 fl (7.4-10.4); MONOCYTE # 0.5 10^3/ul (0.3-0.9); MONOCYTES % 5.3 % (0.0-11.0); NEUTROPHIL # 5.7 10^3/ul (1.6-7.5); NEUTROPHILS % 66.5 % (39.0-77.0); PLATELET COUNT 208 10^3/UL (140-415); RED BLOOD COUNT 3.69 10^6/ul (4.20-5.40); RED CELL DISTRIBUTION WIDTH 13.8 % (11.5-14.5); WHITE BLOOD COUNT 8.6 10^3/ul (4.8-10.8)
[2017-04-15 12:30] LABS: INR 1.05; PROTIME 13.7 Sec (12.2-14.2); PT RATIO 1.1
[2017-04-15 12:31] LABS: ALBUMIN 3.2 g/dl (3.3-4.9); ALBUMIN/GLOBULIN RATIO 1.06; BILIRUBIN,INDIRECT 0.3 mg/dl (0-1.1); BILIRUBIN,TOTAL 0.3 mg/dl (0.2-1.3); CALCIUM 8.7 mg/dl (8.4-10.2); CREATININE 0.5 mg/dl (0.44-1.00); PARTIAL THROMBOPLASTIN TIME 31.1 Sec (25.0-35.0); TOTAL PROTEIN 6.2 g/dl (6.1-8.1)
--- NOTE | 2017-04-15 13:43 | PN ---
Triage Information Date/Time Reason for visit: Weeks of Gestation 35w 3d /Para Diabetes: gestational Diabetes management: insulin controlled Objective Vital Signs Date Time Temp Pulse Resp B/P Pulse Ox O2 Delivery O2 Flow Rate FiO2 04/15/17 09:22 98.3 88 18 115/59 98 Room Air Heart Rate Comments FHT with wandering basline, +accels, 2 decels when patient on her back Contractions: None Results/Medications Result Diagram: 04/15/17 1100 04/15/17 1100 Results 24 hrs Laboratory Tests Test 04/15/17 11:00 White Blood Count 8.6 Red Blood Count 3.69 L Hemoglobin 10.4 L Hematocrit 31.8 L Mean Corpuscular Volume 86.2 Mean Corpuscular Hemoglobin 28.2 L Mean Corpuscular Hemoglobin Concent 32.7 Red Cell Distribution Width 13.8 Platelet Count 208 Mean Platelet Volume 11.8 H Neutrophils % 66.5 Lymphocytes % 25.9 Monocytes % 5.3 Eosinophils % 1.3 Basophils % 0.3 Nucleated Red Blood Cells % 0.0 Neutrophils # 5.7 Lymphocytes # 2.2 Monocytes # 0.5 Eosinophils # 0.1 Basophils # 0.0 Nucleated Red Blood Cells # 0.0 Prothrombin Time 13.7 Prothrombin Time Ratio 1.1 INR International Normalized Ratio 1.05 Activated Partial Thromboplast Time 31.1 Sodium Level 136 Potassium Level 4.0 Chloride Level 108 Carbon Dioxide Level 23 Anion Gap 9 Blood Urea Nitrogen 7 Creatinine 0.50 Glucose Level 109 Calcium Level 8.7 Total Bilirubin 0.3 Direct Bilirubin 0.00 Indirect Bilirubin 0.3 Aspartate Amino Transf (AST/SGOT) 19 Alanine Aminotransferase (ALT/SGPT) 33 Alkaline Phosphatase 111 Total Protein 6.2 Albumin 3.2 L Globulin 3.00 Albumin/Globulin Ratio 1.06 Amylase Level 63 Lipase 34 Medications Current Medications Lactated Ringer's (Lr) 1,000 ml @ 125 mls/hr Q8H IV Last administered on t 12:27; Admin Dose 125 MLS/HR; Start 04/15/17 at 10:32 Imaging Results BPP 8/, LIBERTAD 9.4cm Disposition: Discharge Assessment/Plan 21 y/o at 35w 3d with gdma2 on insulin and decels on FHT -BPP reassuring -discharge home -f/u for NST tomorrow, scheduled for NST in 3 days LOY CARDONA Apr 15, 2017 13:43
--- NOTE | 2017-04-15 13:50 | RADRPT ---
PROCEDURE: US OB. CLINICAL INDICATION: Size and dates , gestational diabetes TECHNIQUE: Multiple sonographic images of the pelvis and gravid uterus were obtained. The images were reviewed on a PACS workstation. COMPARISON: 04/05/2017 FINDINGS: There is a single viable intrauterine gestation. Cardiac activity is present with 166 beats per min tatyana. There is a vertex presentation. The placenta is posterior. There is no evidence for an abruption or placenta previa. Measurements were made in order to determine age. The results are as follows: BPD =8.2 cm HC =30.5 cm AC =31.9 cm FL =6.9 cm Estimated gestational age of approximately 34 weeks and 3 days based on ultrasound measurements. Clinical age: 35 weeks and 3 days. The estimated date of delivery is 05/24/17, based on ultrasound measurements. The EFW = 2608 g, 40.7%, based on LMP age. RPTAT: AA IMPRESSION: Single viable intrauterine gestation of approximately 34 weeks and 3 days based on ultrasound measu rements. .Paulo Srivastava MD, Date Time Electronically viewed and signed by .Paulo Srivastava MD, on 04/15/2017 13:50 .S/
--- NOTE | 2017-04-15 19:51 | TRIAGE ---
OB Triage Datetime Report Generated by CPN: 04/15/2017 19:51 Datetime: 04/15/2017 13:13 Labor Evaluation Frequency: OCCASIONAL Monitor Mode: External Duration (sec)2399: 50-70 Quality: Moderate Pattern: Normal: <= 5 Contractions in 10 Minutes Resting Tone [place]: Relaxed Heart Rate FHR Baseline Rate: 125 Monitor Mode: External US Variability: Moderate 6-25 bpm Accelerations: 15X15 Decelerations: None Category: Category I Datetime: 04/15/2017 12:16 Labor Evaluation Frequency: irreg Monitor Mode: External Duration (sec)2399: 40-60 Quality: Strong Pattern: Normal: <= 5 Contractions in 10 Minutes Resting Tone [place]: Relaxed Heart Rate FHR Baseline Rate: 145 Monitor Mode: External US Variability: Moderate 6-25 bpm Accelerations: 15X15 Decelerations: None Category: Category I Datetime: 04/15/2017 11:05 Labor Evaluation Frequency: OCCA Monitor Mode: External Duration (sec)2399: 40-70 Quality: Mild Pattern: Normal: <= 5 Contractions in 10 Minutes Heart Rate FHR Baseline Rate: 150 Monitor Mode: External US Variability: Moderate 6-25 bpm Accelerations: 15X15 Decelerations: None Category: Category II Datetime: 04/15/2017 10:15 Labor Evaluation Frequency: OCCA Monitor Mode: External Duration (sec)2399: 40-70 Quality: Mild Pattern: Normal: <= 5 Contractions in 10 Minutes Heart Rate FHR Baseline Rate: 150 Monitor Mode: External US Variability: Moderate 6-25 bpm Accelerations: 15X15 Decelerations: None Category: Category II Datetime: 04/15/2017 09:28 Maternal Assessment Level of Consciousness: Fully Conscious DTR's/Clonus: DTRs 2+; No Clonus Headache: Denies Blurred Vision: No Respiratory Effort: Unlabored; Regular Rhythm; Equal Expansion Breath Sounds, Left: Clear and Equal Breath Sounds, Right: Clear and Equal Nausea/Vomiting: Denies RUQ Epigastric Pain: Denies Facial Edema: None Fall Risk Assessment History of Falling: (0) No Secondary Diagnosis: (0) No Ambulatory Aid: (0) Bedrest/Nurse Assist IV Therapy: (0) No Gait: (0) Normal/Bedrest/Immobile Mental Status: (0) Oriented to Own Ability Fall Score: 0 Fall Risk Score Definition: No Risk: No action required Datetime: 04/15/2017 09:27 Stage of : OB Triage Assessment Type: Triage Maternal Assessment Level of Consciousness: Fully Conscious DTR's/Clonus: DTRs 2+; No Clonus Headache: Denies Blurred Vision: No Respiratory Effort: Unlabored; Regular Rhythm; Equal Expansion Breath Sounds, Left: Clear and Equal Breath Sounds, Right: Clear and Equal Nausea/Vomiting: Denies RUQ Epigastric Pain: Denies Lower Extremities Edema: Bilateral Lower Extremities Degree: 2+ Upper Extremities Edema: None Degree: None Facial Edema: None Temperature Route: Axillary Fall Risk Assessment History of Falling: (0) No Secondary Diagnosis: (0) No Ambulatory Aid: (0) Bedrest/Nurse Assist IV Therapy: (0) No Gait: (0) Normal/Bedrest/Immobile Mental Status: (0) Oriented to Own Ability Fall Score: 0 Fall Risk Score Definition: No Risk: No action required Pain Assessment Pain Scale: 0 Pain Presence: None/Denies Datetime: 04/15/2017 09:24 Time of Arrival: 04/15/2017 09:05 EGA: 35.3 Arrived By: Ambulatory Arrived From: Other Unit in Hospital Chief Complaint: EXTENDED NST FOR DECEL IN NST CLINIC A2DM ON 66 U OF INSULIN Movement: Present Contractions: Denies/Absent Rupture of Membranes: Denies Vaginal Bleeding: None Vaginal Discharge: Denies Recent Sexual Intercouse: Denies Patient Complaints: None Additional Patient Complaints: PT REPORTS FASTING BG 107 RANDOM GLUCOSE 109MG/DL PT REPORTS NO PAIN 0/10 Time Provider Notified: 04/15/2017 10:30 Provider Notified: DR. CARDONA Initial Plan: NST CALL MD Datetime: 04/15/2017 08:39 Interventions: Side to Side Datetime: 04/12/2017 09:11 Comments: At bedside, no decel heard. loss of contact. pt repositioned and monitor adjusted. Datetime: 04/12/2017 08:58 Comments: loss of contact Datetime: 04/05/2017 19:16 Fall Score: 0 Fall Risk Score Definition: No Risk: No action required Datetime: 04/05/2017 19:00 EGA: 34.0 Datetime: 02/23/2017 20:48 EGA: 28.1 Datetime: 02/23/2017 20:30 Fall Score: 0 Fall Risk Score Definition: No Risk: No action required Datetime: 02/14/2017 18:34 Fall Score: 0 Fall Risk Score Definition: No Risk: No action required Datetime: 02/14/2017 18:32 Fall Score: 0 Fall Risk Score Definition: No Risk: No action required Datetime: 02/14/2017 18:13 EGA: 26.6 Datetime: 02/12/2017 21:15 Fall Score: 0 Fall Risk Score Definition: No Risk: No action required Datetime: 02/12/2017 21:12 EGA: 26.4
== END 2017-04-15 13:49 | disposition home or self-care (01) ==
LOC: OBT 09:12 → L-D 09:12 → OBT 13:49
PROVIDERS: ATTEND Obstetrics & Gynecology
DX: O24.414 Gestational diabetes mellitus in pregnancy, insulin controlled (principal); Z3A.35 35 weeks gestation of pregnancy; Z79.4 Long term (current) use of insulin
CPT/HCPCS: 36415; 76815; 76818; 80053; 80076; 82150; 83690; 85025; 85610; 85730; 86850; 86900; 86901; 96360; 96361; J7120; Z7500; G0463

== ENCOUNTER 2017-04-16 06:40 | Outpatient (CLI) | payer MEDICAID ==
[~2017-04-16] VITALS: Ht 157.5 cm; Wt 103.6 kg
[2017-04-16 07:53] VITALS: BP 98/47; PULSE 70; RESP 18; Ht 157.5 cm; Wt 103.6 kg
--- NOTE | 2017-04-16 08:33 | TRIAGE ---
OB Triage Datetime Report Generated by CPN: 04/16/2017 08:33 Datetime: 04/16/2017 08:18 Stage of : OB Triage Frequency: X1 Monitor Mode: External Duration (sec)2399: 90 Quality: Mild Pattern: Normal: <= 5 Contractions in 10 Minutes Resting Tone [place]: Relaxed FHR Baseline Rate: 130 Monitor Mode: External US Variability: Moderate 6-25 bpm Accelerations: 15X15 Decelerations: None Category: Category I Pain Presence: None/Denies Datetime: 04/16/2017 07:30 Stage of : OB Triage Temperature Route: Oral Frequency: 0 Monitor Mode: External Pattern: Normal: <= 5 Contractions in 10 Minutes Resting Tone [place]: Relaxed FHR Baseline Rate: 130 Monitor Mode: External US Variability: Moderate 6-25 bpm Accelerations: 15X15 Decelerations: None Category: Category I Pain Presence: None/Denies Datetime: 04/16/2017 07:15 Assessment Type: Triage Level of Consciousness: Fully Conscious DTR's/Clonus: DTRs 2+; No Clonus Headache: Denies Blurred Vision: No Respiratory Effort: Unlabored; Regular Rhythm; Equal Expansion Nausea/Vomiting: Denies RUQ Epigastric Pain: Denies Lower Extremities Edema: None Upper Extremities Edema: None Facial Edema: None History of Falling: (0) No Secondary Diagnosis: (0) No Ambulatory Aid: (0) Bedrest/Nurse Assist IV Therapy: (0) No Gait: (0) Normal/Bedrest/Immobile Mental Status: (0) Oriented to Own Ability Fall Score: 0 Fall Risk Score Definition: No Risk: No action required Datetime: 04/16/2017 07:04 Time of Arrival: 04/16/2017 06:30 EGA: 35.4 Arrived By: Ambulatory Arrived From: Home Chief Complaint: repeat nst Movement: Present Contractions: Denies/Absent Rupture of Membranes: Denies Vaginal Discharge: Denies Patient Complaints: None Time Provider Notified: 04/16/2017 06:54 Provider Notified: jose Initial Plan: ARANZA METZT
--- NOTE | 2017-04-16 08:34 | CONS ---
Date/Time of Note Date/Time of Note DATE: 04/16/17 TIME: 08:26 Consultation Date/Type/Reason Admit Date/Time April 16 2017 OB triage consult This Patient is a 21 years old 1 para 0 with estimated date of confinement May 17, 2017 which makes her 35 weeks and 4 days today. She developed gestational diabetes during this and is on antidiabetic medication including Humalog. She is being followed with NST tests in the clinic Came to triage for further monitoring and evaluation On examination she is somewhat overweight patient ;her body weight is 103.6 kg her vital signs very stable blood pressure 98/47 pulse rate 70 respiration 18 temperature 98 and saturation was 100% at room temperature. She does not have any contraction at this time Constitutional: No chills, No diaphoresis, No disoriented, No febrile, No improved, No no complaints, No other, No poor po, No requiring IVF, No requiring O2 Eyes: No discharge, No no complaints, No other, No pain, No redness, No visual change ENT: No bleeding, No congestion, No discharge, No dysphagia, No no complaints, No other, No pain, No sore throat Respiratory: No cough, No no complaints, No other, No pain, No pleuritic pain, No shortness of breath, No sputum, No wheezing Cardiovascular: No chest pain, No edema, No lightheadedness, No no complaints, No orthopenea, No other, No palpitations, No paroxysmal nocturnal dyspnea Gastrointestinal: No blood, No constipation, No decreased appetite, No diarrhea , No flatus, No nausea, No no complaints, No other, No pain, No passing stool, No vomiting Genitourinary: No bleeding, No discharge, No dysuria, No flank pain, No hematuria, No no complaints, No other Musculoskeletal: No back pain, No bone/joint pain, No neck pain, No no complaints, No other, No restricted range of motion, No swelling Skin: No bruising, No erythema, No laceration, No no complaints, No other, No pruritis, No rash, No skin lesions Neurologic: No confusion, No dizziness, No focal-weakness, No headache, No no complaints, No other, No seizure, No syncope Endocrine: No dry skin, No no complaints, No other, No polydypsia, No polyuria , No temp intolerance Additional Comments . . In reviewing her heart rate tracing ;she does not have very many contractions the tracing shows good variability occasional acceleration no decelerations Plan; she will be discharged home to be followed in the perinatology clinic for further tests. She is advised to do count and return to triage in case of any evidence of labor vaginal bleeding or low. movement. End of dictation Social History Smoking Status: Never smoker Exam/Review of Systems Vital Signs Vitals Vital Signs Date Time Temp Pulse Resp B/P Pulse Ox O2 Delivery O2 Flow Rate FiO2 04/16/17 07:53 98.1 70 18 98/47 Room Air RITIKA AVERY MD Apr 16, 2017 08:34
== END 2017-04-16 08:28 | disposition home or self-care (01) ==
LOC: OBT 06:40 → L-D 06:43 → OBT 08:28
PROVIDERS: ATTEND Obstetrics & Gynecology
DX: O24.415 Gestational diabetes mellitus in pregnancy, controlled by oral hypoglycemic drugs (principal); Z3A.35 35 weeks gestation of pregnancy; Z79.84 Long term (current) use of oral hypoglycemic drugs
CPT/HCPCS: G0463

== ENCOUNTER 2017-05-10 08:30 | Inpatient (IN) | payer MEDICAID ==
[~2017-05-10] VITALS: Ht 157.5 cm; Wt 103.6 kg
[2017-05-10 08:59] VITALS: Ht 157.5 cm; Wt 103.6 kg
[2017-05-10 09:15] VITALS: BP 130/69; PULSE 87; RESP 20
[2017-05-10] MEDS ORDERED: CARBOPROST 250 MCG INJ IM PRN (09:30)
[2017-05-10] MEDS ORDERED: IBUPROFEN 600 MG TAB PO PRN (09:30)
[2017-05-10] MEDS ORDERED: AMPICILLIN 2 GM/NS (PMX) 100 ML IV ONE (09:30)
[2017-05-10] MEDS ORDERED: MISOPROSTOL 200 MCG TAB PR PRN (09:30)
[2017-05-10] MEDS ORDERED: HYDROCODONE/APAP (5/325) TAB PO PRN (09:30)
[2017-05-10] MEDS ORDERED: LIDOCAINE 1% (MPF) 30 ML INJ INJ PRN (09:30)
[2017-05-10] MEDS ORDERED: METHYLERGONOVINE 0.2 MG INJ IM PRN (09:30)
[2017-05-10] MEDS ORDERED: OXYTOCIN 30 UNITS/LR 500 ML IV PRN (09:30)
[2017-05-10] MEDS ORDERED: BUTORPHANOL 2 MG INJ IV PRN (09:30)
[2017-05-10] MEDS ORDERED: OXYTOCIN 30 UNITS/LR 500 ML IV SCH ×2 (09:30)
[2017-05-10] MEDS ORDERED: NPH,100V SQ (09:35)
[2017-05-10] MEDS: LACTATED RINGER'S 1,000 ML IV SCH ×2 (09:36→18:54)
[2017-05-10] MEDS ORDERED: DEXTROSE 5%-LR 1,000 ML IV PRN ×2 (11:00→22:00)
[2017-05-10] MEDS ORDERED: LACTATED RINGER'S 1,000 ML IV PRN (11:00)
[2017-05-10 11:04] LABS: BASOPHILS % 0.4 % (0.0-2.0); EOSINOPHILS # 0.1 10^3/ul (0.0-0.5); EOSINOPHILS % 0.5 % (0.0-7.0); HEMATOCRIT 34.2 % (37.0-47.0); HEMOGLOBIN 11.1 g/dl (12.0-16.0); LYMPHOCYTES # 2.5 10^3/ul (0.8-2.9); MEAN CORPUSCULAR HGB CONC 32.5 g/dl (32.0-37.0); MEAN CORPUSCULAR VOLUME 86.4 fl (82.0-101.0); MEAN PLATELET VOLUME 11.4 fl (7.4-10.4); MONOCYTE # 0.5 10^3/ul (0.3-0.9); MONOCYTES % 5.2 % (0.0-11.0); NEUTROPHIL # 7.1 10^3/ul (1.6-7.5); NEUTROPHILS % 69.4 % (39.0-77.0); PLATELET COUNT 192 10^3/UL (140-415); RED BLOOD COUNT 3.96 10^6/ul (4.20-5.40); RED CELL DISTRIBUTION WIDTH 15.9 % (11.5-14.5); WHITE BLOOD COUNT 10.2 10^3/ul (4.8-10.8)
[2017-05-10 11:12] LABS: PROTIME 13.2 Sec (12.2-14.2)
[2017-05-10 11:13] LABS: PARTIAL THROMBOPLASTIN TIME 31.9 Sec (25.0-35.0)
--- NOTE | 2017-05-10 12:01 | RADRPT ---
PROCEDURE: Obstetrical ultrasound CLINICAL INDICATION: Gestational diabetes, macrosomia TECHNIQUE: Multiple sonographic images of the pelvis were obtained. The images were reviewed on a PACS workstation. COMPARISON: None FINDINGS: The cervix is not well visualized. There is a single viable intrauterine gestation. Cardiac activity is present with 117 beats per minute. There is a vertex presentation. The placenta is posterior. There is no evidence for an abruption or placenta previa. There is a subjectively normal amount of amniotic fluid. Measurements were made in order to determine age. The results are as follows (cm): BPD =8.65 HC =32.07 AC =35.82 FL =7.12 Estimated gestational age by ultrasound of approximately 36 weeks, 6 days. The estimated date of delivery by ultrasound is 06/01/2017. Estimated gestational age by LMP of approximately 39 weeks, 0 days. The estimated date of delivery by LMP is 05/17/2017. EFW = 3366 grams (43rd percentile) IMPRESSION: Single viable intrauterine gestation of approximately 36 weeks, 6 days . The estimated date of delivery is 06/01/2017 . Dating by ultrasound is within 15 days of dating by LMP. Cephalic presentation. Estimated weight is 3366 g which is in the 43rd percentile. RPTAT: EE Physician Molly Date Time Electronically viewed and signed by Physician Molly on 05/10/2017 12:01 ALLIE
[2017-05-10] MEDS: MISOPROSTOL 25 MCG CAPSULE PO SCH ×3 (13:17→21:06)
[2017-05-10] MEDS: AMPICILLIN 1 GM/NS (PMX) 50 ML IV SCH ×3 (13:20→20:55)
[2017-05-11] MEDS: AMPICILLIN 1 GM/NS (PMX) 50 ML IV SCH ×6 (00:51→21:41)
[2017-05-11] MEDS: MISOPROSTOL 25 MCG CAPSULE PO SCH ×4 (00:53→13:00)
[2017-05-11] MEDS: LACTATED RINGER'S 1,000 ML IV SCH ×3 (04:23→22:50)
--- NOTE | 2017-05-11 06:46 | PREOPHP ---
DATE OF ADMISSION: 05/10/2017 HISTORY OF PRESENT ILLNESS: Ms. Virginie Baeza is a 21-year-old 1, para 0, EDC 05/17/2017, i ntrauterine at 39 weeks' gestational age, history of GDM A2, admitted today for induction. She denies any contractions, vaginal bleeding or discharge. [facility] care took place at [facility]. PAST MEDICAL HISTORY: GDM A2. MEDICATIONS: vitamins. PAST SURGICAL HISTORY: None. OBSTETRIC HISTORY: Primigravid. GYNECOLOGIC HISTORY: 12, regular, 3 to 4 days. Denies any sexually transmitted diseases. Sexually active with 1 partner. SOCIAL HISTORY: Denies any smoking, drugs or alcohol. FAMILY HISTORY: None. REVIEW OF SYSTEMS: All within normal except history of present illness. PHYSICAL EXAMINATION: HEENT: Within normal. LUNGS: CTA bilateral. CARDIOVASCULAR: S1, S2, regular rhythm. ABDOMEN: Gravid, nontender. Negative CVA bilaterally. EXTREMITIES: Negative edema. No calf tenderness. PELVIC: Vaginal exam on admission: Fingertip, long and -3. ASSESSMENT: Intrauterine at 39 weeks' gestational age, gestational diabetes mellitus A2, admitted for induction. Currently on the Cytotec regimen for cervical ripening. PLAN: Continue Cytotec regimen, followed by Pitocin induction. Risks, benefits and alternatives ex plained to the patient. The patient understands and agrees with plan. Dictated By: KIMBERLEY SEE/CARIDAD Conf#: [id number] DID#: [id number]
--- NOTE | 2017-05-11 11:27 | QN ---
Documentation Comment Patient was seen and evaluated awake alert oriented 3 no complaints Vital signs stable afebrile Abdomen gravid nontender Extremity negative edema no calf tenderness Vaginal exam performed earlier today fingertip/long -3 heart tracing cat 1 Crosby occasional contraction Assessment interim at 39 weeks gestational age admitted for induction secondary to GDM A2 currently on Cytotec regimen for cervical ripening Plan continue present management consider KIMBERLEY Shaw MD May 11, 2017 11:27
[2017-05-11] MEDS ORDERED: OXYTOCIN 30 UNITS/LR 500 ML IV SCH (15:08)
[2017-05-12] MEDS: AMPICILLIN 1 GM/NS (PMX) 50 ML IV SCH ×6 (01:01→21:00)
[2017-05-12] MEDS: LACTATED RINGER'S 1,000 ML IV SCH ×2 (06:09→15:07)
[2017-05-12] MEDS ORDERED: CEFAZOLIN 2 GM/50 ML (PMX) 50 ML IVPB SCH (15:30)
--- NOTE | 2017-05-12 19:44 | QN ---
Documentation Comment Progress note Patient has not had any significant change since admission after given Cytotec for cervical ripening and Pitocin for almost 24 hours after explaining the risks benefits and alternative patient agreed for delivery secondary to failed induction Risks benefits alternatives explained all questions were answered KIMBERLEY WAGNER MD May 12, 2017 19:44
[2017-05-12] MEDS ORDERED: FENTAnyl 50 MCG/ML VIAL ONE (19:46)
[2017-05-12] MEDS ORDERED: PHENYLephrine (100 MCG/ML) 5ML SYG ONE (19:46)
[2017-05-12] MEDS ORDERED: morphine SULFATE/PF (10 MG/10 ML) INJ ONE (19:46)
[2017-05-12] MEDS ORDERED: ONDANSETRON 4 MG INJ ONE (20:08)
[2017-05-12] MEDS ORDERED: EPHEDrine SULFATE 50 MG/5 ML SYG ONE (20:11)
--- NOTE | 2017-05-12 20:54 | SIPON ---
Date/Time of Note Date/Time of Note DATE: 05/12/17 TIME: 20:52 Operative Report Preoperative Diagnosis 21-year-old 1 para 0 interim at 39 weeks gestational age GDM A2 failed induction Postoperative Diagnosis Same Operation/Procedure Performed Primary low transverse delivery Surgeon see signature line customer care assistant Dr. Og Anesthesia: spinal Estimated blood loss: other (500) Transfusion Required none Specimen none Grafts/Implants none Complications none KIMBERLEY WAGNER MD May 12, 2017 20:54
[2017-05-12] MEDS ORDERED: LANOLIN 7 GM TUBE TOP PRN (21:00)
[2017-05-12] MEDS ORDERED: OXYTOCIN 30 UNITS/LR 500 ML IV PRN (21:00)
[2017-05-12] MEDS ORDERED: CARBOPROST 250 MCG INJ IM PRN (21:00)
[2017-05-12] MEDS ORDERED: MISOPROSTOL 200 MCG TAB PR PRN (21:00)
[2017-05-12] MEDS: SENNA/DOCUSATE NA (8.6MG/50MG) TAB PO SCH (21:00)
[2017-05-12] MEDS ORDERED: METHYLERGONOVINE 0.2 MG INJ IM PRN (21:00)
[2017-05-12] MEDS ORDERED: CEFAZOLIN 2 GM/50 ML (PMX) 50 ML IV SCH (21:00)
[2017-05-12] MEDS ORDERED: OXYCODONE/ACETAMINOPHEN (5/325) TAB PO PRN (21:00)
[2017-05-12] MEDS ORDERED: DIPHENHYDRAMINE 50 MG INJ IV PRN (21:30)
[2017-05-12] MEDS ORDERED: ZOLPIDEM 5 MG TAB PO PRN (21:30)
[2017-05-12] MEDS ORDERED: NALBUPHINE HCL (10 MG/1 ML) INJ IV PRN (21:30)
[2017-05-12] MEDS ORDERED: HYDROmorphONE 0.5 MG/0.5 ML SYG IV PRN ×2 (21:30)
[2017-05-12] MEDS ORDERED: NALOXONE (0.4 MG/ML) INJ IV PRN (21:30)
[2017-05-12] MEDS ORDERED: ONDANSETRON 4 MG INJ IV PRN (21:30)
[2017-05-12] MEDS ORDERED: HYDROmorphONE 2 MG/ML SYG IV PRN ×2 (22:30)
[2017-05-12 23:00] VITALS: BP 117/56; PULSE 69; RESP 20
[2017-05-12] MEDS: KETOROLAC 30 MG INJ IV PRN (23:14)
[2017-05-12 23:15] VITALS: BP 118/64; PULSE 70; RESP 20
[2017-05-13] VITALS (7 sets, daily range): BP systolic 102–122; BP diastolic 52–66; PULSE 60–84; RESP 18–20
[2017-05-13] MEDS: LACTATED RINGER'S 1,000 ML IV SCH ×4 (02:20→20:54)
[2017-05-13] MEDS: CEFAZOLIN 2 GM/50 ML (PMX) 50 ML IVPB SCH ×3 (03:49→19:44)
[2017-05-13] MEDS: IBUPROFEN 600 MG TAB PO SCH ×5 (06:00→23:41)
[2017-05-13] MEDS: ACCU-CHEK XX SCH ×4 (07:30→20:05)
[2017-05-13 09:12] LABS: BASOPHILS % 0.3 % (0.0-2.0); EOSINOPHILS # 0.1 10^3/ul (0.0-0.5); EOSINOPHILS % 0.7 % (0.0-7.0); HEMATOCRIT 30.6 % (37.0-47.0); HEMOGLOBIN 10.1 g/dl (12.0-16.0); LYMPHOCYTES # 2.2 10^3/ul (0.8-2.9); LYMPHOCYTES % 21.9 % (15.0-51.0); MEAN CORPUSCULAR HEMOGLOBIN 28.9 pg (29.0-33.0); MEAN CORPUSCULAR VOLUME 87.4 fl (82.0-101.0); MEAN PLATELET VOLUME 11.9 fl (7.4-10.4); MONOCYTE # 0.8 10^3/ul (0.3-0.9); NEUTROPHIL # 6.8 10^3/ul (1.6-7.5); NEUTROPHILS % 68.7 % (39.0-77.0); PLATELET COUNT 170 10^3/UL (140-415); RED CELL DISTRIBUTION WIDTH 15.9 % (11.5-14.5); WHITE BLOOD COUNT 9.9 10^3/ul (4.8-10.8)
[2017-05-13] MEDS: SENNA/DOCUSATE NA (8.6MG/50MG) TAB PO SCH ×2 (09:28→21:39)
[2017-05-13] MEDS: KETOROLAC 30 MG INJ IV PRN ×2 (12:45→19:45)
[2017-05-13] MEDS: FERROUS SULFATE (EC) 325 MG TAB PO SCH (21:39)
[2017-05-13] MEDS: OXYCODONE/ACETAMINOPHEN (5/325) TAB PO PRN (23:42)
[2017-05-14 04:19] VITALS: BP 110/61; PULSE 70; RESP 20
[2017-05-14] MEDS: LACTATED RINGER'S 1,000 ML IV SCH (04:54)
[2017-05-14] MEDS: IBUPROFEN 600 MG TAB PO SCH ×4 (05:46→23:36)
[2017-05-14] MEDS: OXYCODONE/ACETAMINOPHEN (5/325) TAB PO PRN ×2 (05:47→11:21)
[2017-05-14] MEDS: ACCU-CHEK XX SCH ×4 (07:30→13:50)
[2017-05-14 08:00] VITALS: BP 96/47; PULSE 62; RESP 18
[2017-05-14] MEDS: SENNA/DOCUSATE NA (8.6MG/50MG) TAB PO SCH ×2 (09:06→21:01)
[2017-05-14] MEDS: FERROUS SULFATE (EC) 325 MG TAB PO SCH ×2 (09:06→21:01)
[2017-05-14 16:33] VITALS: BP 118/56; PULSE 72; RESP 16
[2017-05-14] MEDS ORDERED: INFLUENZA VIRUS VACCINE 0.5 ML (DISPENSING) IM* ONE (19:30)
[2017-05-14 20:00] VITALS: BP 140/82; PULSE 81; RESP 20
[2017-05-15 03:32] VITALS: BP 128/74; PULSE 75; RESP 20
[2017-05-15] MEDS: OXYCODONE/ACETAMINOPHEN (5/325) TAB PO PRN (05:07)
[2017-05-15] MEDS: IBUPROFEN 600 MG TAB PO SCH ×2 (05:07→12:20)
[2017-05-15] MEDS: ACCU-CHEK XX SCH ×2 (07:30→09:38)
[2017-05-15 08:15] VITALS: BP 116/64; PULSE 66; RESP 16
[2017-05-15] MEDS: FERROUS SULFATE (EC) 325 MG TAB PO SCH (09:41)
[2017-05-15] MEDS: SENNA/DOCUSATE NA (8.6MG/50MG) TAB PO SCH (09:41)
--- NOTE | 2017-05-15 11:42 | DS ---
Date/Time of Note Date/Time of Note DATE: 05/15/17 TIME: 11:41 Obstetrical Discharge Record Final Diagnosis Final Diagnosis: Term delivered Section Section: Primary Primary Indication failed induction Complications Gestational Diabetes Condition on Discharge Physical Assessment Bowel Movement: Yes Breast: Soft, non-tender Fundus: Firm Calf Tenderness: No Patient Condition: Stable LORI LIMA MD May 15, 2017 11:42
== END 2017-05-15 17:23 | disposition home or self-care (01) | DRG 766 ==
LOC: L-D 08:47 → PP1 05-13
PROVIDERS: ADMIT Obstetrics & Gynecology; ATTEND Obstetrics & Gynecology
PROC: 3E0P3VZ Introduction of Hormone into Female Reproductive, Percutaneous Approach (ICD-10-PCS; 2017-05-10)
PROC: 10D00Z1 Extraction of Products of Conception, Low, Open Approach (ICD-10-PCS; principal; 2017-05-10 08:30)
DX: O24.429 Gestational diabetes mellitus in childbirth, unspecified control (principal); E03.9 Hypothyroidism, unspecified; O62.0 Primary inadequate contractions; O99.284 Endocrine, nutritional and metabolic diseases complicating childbirth; Z3A.39 39 weeks gestation of pregnancy; Z37.0 Single live birth
CPT/HCPCS: 76815; 82947; 82962; 85025; 85610; 85730; 86592; 86850; 86900; 86901; 90686; 94760; 99464; J0290; J0595; J0690; J1200; J1885; J2210; J2274; J2370; J2405; J2590; J3010; J7120

== ENCOUNTER 2018-12-28 17:57 | Emergency (ER) | payer SELFPAY ==
[~2018-12-28] VITALS: Ht 162.6 cm; Wt 81.7 kg
[~2018-12-28 17:57] MED LIST changes: -INSU100C SQ; -NPH,100V SQ
[2018-12-28 17:59] VITALS: BP 134/76; PULSE 68; RESP 18; Ht 162.6 cm; Wt 81.7 kg
[2018-12-28] MEDS ORDERED: IBUP-1542 PO (18:21)
[2018-12-28] MEDS ORDERED: CEPH500C PO (18:21)
[2018-12-28] MEDS ORDERED: SULF1TAB31 PO (18:21)
--- NOTE | 2018-12-28 18:23 | ERD ---
ER Documentation Chief Complaint Chief Complaint possible insect bite on rt leg HPI 23-year-old female presents with warmth and redness on her right lateral calf starting yesterday. She believes she may have been bitten by an insect prior. patient denies fevers, vomiting, shortness of breath or chest pain. ROS All systems reviewed and are negative except as per history of present illness. Medications Home Meds Active Scripts Ibuprofen* (Motrin*) 600 Mg Tab, 600 MG PO Q6, #15 TAB Prov:NIKUNJ GASPAR MD 12/28/18 Sulfamethoxazole/Trimethoprim* (Bactrim Ds* Tablet) 1 Each Tablet, 1 TAB PO BID for 7 Days, #14 TAB Prov:NIKUNJ GASPAR MD 12/28/18 Cephalexin* (Cephalexin*) 500 Mg Capsule, 500 MG PO Q6 for 7 Days, #28 CAP Prov:NIKUNJ GASPAR MD 12/28/18 Reported Medications Multivit/Min/Fol Ac/Iron/Pren* ( S*) 1 Tab Tab, 1 TAB PO DAILY, TAB 02/12/17 Allergies Allergies: Coded Allergies: No Known Allergy (Verified , 04/15/17) PMhx/Soc Hx Miscellaneous Medical Probl: Yes (dm) Hx Alcohol Use: No Hx Substance Use: No Hx Tobacco Use: No FmHx Family History: No diabetes, No coronary disease, No other Physical Exam Vitals Vital Signs Date Temp Pulse Resp B/P (MAP) Pulse Ox O2 O2 Flow FiO2 Time Delivery Rate 12/28/18 98.2 68 18 134/76 100 17:59 (95) Physical Exam Const: No acute distress Head: Atraumatic Eyes: Normal Conjunctiva ENT: Normal External Ears, Nose and Mouth. Neck: Full range of motion. No meningismus. Resp: Clear to auscultation bilaterally Cardio: Regular rate and rhythm, no murmurs Abd: Soft, non tender, non distended. Normal bowel sounds Skin: No petechiae or rashes Back: No midline or flank tenderness Ext: No cyanosis, or edema. Approximately 6 cm area of warmth, redness on the right lateral proximal fibular area. No induration or streaking. No fluctuance. No calf swelling or Homans sign. Neur: Awake and alert Psych: Normal Mood and Affect Results 24 hrs Current Medications Medications Dose Sig/Radhika Start Time Status Last (Trade) Ordered Route PRN Stop Time Admin Dose Reason Admin Ceftriaxone 1 gm ONCE ONCE 12/28/18 Sodium IM 18:30 (Rocephin) 12/28/18 18:31 Lidocaine 20 ml ONCE ONCE 12/28/18 (Xylocaine SC 18:30 1% (Mdv) 20 12/28/18 18:31 ml) 1 tab ONCE ONCE 12/28/18 Trimethoprim/ PO 18:30 12/28/18 18:31 Sulfamethoxaz ole (Bactrim (Ds)) Ibuprofen 600 mg ONCE ONCE 12/28/18 (Motrin) PO 18:30 12/28/18 18:31 Procedures/MDM Patient presents with signs and symptoms of cellulitis of the right lower extremity. Current signs or symptoms do not suggest DVT, necrotizing fasciitis, ischemia, deficits, sepsis. She will be treated with Keflex, Bactrim, ibupro fen, instructions for warm compresses, elevation, recheck in 2 to 3 days for worsening redness, new worsening symptoms. She was given Rocephin 1 g IM here in the ED. The patient was stable with no new complaints during the ER course. Clinically, there is no current evidence to suggest meningitis, sepsis, acute abdomen, pneumonia, stroke, acute coronary syndrome, pulmonary embolism, aortic dissection or any other emergent condition appearing to require further evaluation or hospitalization. Patient counseled regarding my diagnostic impression and care plan. Prior to discharge all questions answered. Pt agrees with treatment plan and understands strict return precautions. Pt is instructed to follow up with primary care provider within 24-48 hours. Precautionary instructions provided including instructions to return to the ER if not improving or for any worsening or changing symptoms or concerns. Disclaimer: Inadvertent spelling and grammatical errors are likely due to EHR/dictation software use and do not reflect on the overall quality of patient care. Also, please note that the electronic time recorded on this note does not necessarily reflect the actual time of the patient encounter. Departure Diagnosis: Primary Impression: Cellulitis Site of cellulitis: extremity Site of cellulitis of extremity: lower extremity Laterality: right Qualified Codes: L03.115 - Cellulitis of right lower limb Additional Impression: Infected bite wound Condition: Stable Patient Instructions: Cellulitis, Insect Sting/Bite, Infected Additional Instructions: Elevate and apply warm compresses at home. Recheck in 2 to 3 days for worsening redness, fevers, new or worsening symptoms. Okay to take Benadryl for itching. NIKUNJ GASPAR MD Dec 28, 2018 18:23
[2018-12-28] MEDS ORDERED: TRIMETHOPRIM/SULFAMETHOX (DS) TAB PO ONE (18:30)
[2018-12-28] MEDS ORDERED: IBUPROFEN 600 MG TAB PO ONE (18:30)
[2018-12-28] MEDS ORDERED: LIDOCAINE 1% (MDV) 20 ML INJ SC ONE (18:30)
[2018-12-28] MEDS ORDERED: CEFTRIAXONE 1 GM INJ IM ONE (18:30)
== END 2018-12-28 18:50 | disposition home or self-care (01) ==
LOC: FTE 17:57
DX: L03.115 Cellulitis of right lower limb (principal); E11.9 Type 2 diabetes mellitus without complications
CPT/HCPCS: 96372; 99284; J0696